=== PATIENT | female | born 1990 | race Caucasian/White ===

== ENCOUNTER 2018-05-20 09:14 | Inpatient (IN) | payer BC ==
[2018-05-20] MEDS ORDERED: LIDOCAINE 1% (MPF) 30 ML INJ INJ (10:30)
[2018-05-20] MEDS ORDERED: CARBOPROST 250 MCG INJ IM (10:30)
[2018-05-20] MEDS ORDERED: OXYTOCIN 30 UNITS/LR 500 ML IV ×4 (10:30→11:30)
[2018-05-20] MEDS ORDERED: MISOPROSTOL 200 MCG TAB PR (10:30)
[2018-05-20] MEDS ORDERED: METHYLERGONOVINE 0.2 MG INJ IM (10:30)
[2018-05-20] MEDS: LACTATED RINGER'S 1,000 ML IV ×3 (11:07→20:52)
[2018-05-20 11:23] LABS: ADD MAN DIFF? NO
[2018-05-20 11:30] LABS: BASOPHILS % 0.3 % (0.0-2.0); EOSINOPHILS # 0.1 10^3/ul (0.0-0.5); EOSINOPHILS % 0.5 % (0.0-7.0); HEMOGLOBIN 11.9 g/dl (12.0-16.0); LYMPHOCYTES # 1.9 10^3/ul (0.8-2.9); LYMPHOCYTES % 18.4 % (15.0-51.0); MEAN CORPUSCULAR HEMOGLOBIN 28.9 pg (29.0-33.0); MEAN CORPUSCULAR HGB CONC 33.1 g/dl (32.0-37.0); MEAN CORPUSCULAR VOLUME 87.4 fl (82.0-101.0); MEAN PLATELET VOLUME 11.9 fl (7.4-10.4); MONOCYTE # 0.8 10^3/ul (0.3-0.9); MONOCYTES % 8.1 % (0.0-11.0); NEUTROPHIL # 7.4 10^3/ul (1.6-7.5); NEUTROPHILS % 71.5 % (39.0-77.0); PLATELET COUNT 149 10^3/UL (140-415); RED BLOOD COUNT 4.12 10^6/ul (4.20-5.40); RED CELL DISTRIBUTION WIDTH 14.4 % (11.5-14.5)
[2018-05-20 11:30] LABS: WHITE BLOOD COUNT 10.4 10^3/ul (4.8-10.8)
[2018-05-20] MEDS ORDERED: MISOPROSTOL 50 MCG CAPSULE VAG (11:30)
[2018-05-20 11:50] LABS: INR 0.86; PARTIAL THROMBOPLASTIN TIME 25.1 Sec (23.0-35.0); PROTIME 11.8 Sec (11.9-14.9); PT RATIO 0.9
[2018-05-20 13:01] LABS: HEPATITIS B SURFACE ANTIGEN NEGATIVE (NEGATIVE)
[2018-05-20] MEDS: MISOPROSTOL 50 MCG CAPSULE VAG ×2 (13:30→19:44)
[2018-05-20 15:14] LABS: RAPID PLASMA REAGIN NONREACTIVE (NR)
[2018-05-20] MEDS ORDERED: BUTORPHANOL 2 MG INJ (23:13)
[2018-05-20] MEDS: BUTORPHANOL 2 MG INJ IV (23:24)
[2018-05-21] MEDS: LACTATED RINGER'S 1,000 ML IV ×3 (02:21→10:54)
[2018-05-21] MEDS: OXYTOCIN 30 UNITS/LR 500 ML IV ×3 (05:47→17:56)
[2018-05-21] MEDS: MISOPROSTOL 50 MCG CAPSULE VAG ×2 (06:00)
[2018-05-21] MEDS ORDERED: NALOXONE (0.4 MG/ML) INJ IV (07:30)
[2018-05-21] MEDS ORDERED: ONDANSETRON 4 MG INJ IV (07:30)
[2018-05-21] MEDS: FENTAnyl 2MCG/ML-ROPIV 0.2% 100 ML BAG EPI (10:56)
[2018-05-21] MEDS ORDERED: MINERAL OIL LIGHT 10 ML VIAL (12:39)
[2018-05-21] MEDS ORDERED: MISOPROSTOL 200 MCG TAB PR (13:30)
[2018-05-21] MEDS ORDERED: HYDROCODONE/APAP (5/325) TAB PO ×2 (13:30)
[2018-05-21] MEDS ORDERED: OXYTOCIN 30 UNITS/LR 500 ML IV (13:30)
[2018-05-21] MEDS ORDERED: NACL 0.9% 3 ML SYG IV (13:30)
[2018-05-21] MEDS ORDERED: CARBOPROST 250 MCG INJ IM (13:30)
[2018-05-21] MEDS ORDERED: METHYLERGONOVINE 0.2 MG INJ IM (13:30)
[2018-05-21] MEDS: WITCH HAZEL/GLYCERIN PAD PR (17:39)
[2018-05-21] MEDS: IBUPROFEN 600 MG TAB PO (17:40)
[2018-05-21] MEDS: SENNA/DOCUSATE NA (8.6MG/50MG) TAB PO (21:09)
[2018-05-22] MEDS: IBUPROFEN 600 MG TAB PO ×5 (00:18→23:43)
[2018-05-22 07:44] LABS: ADD MAN DIFF? NO
[2018-05-22 07:57] LABS: BASOPHIL # 0.1 10^3/ul (0.0-0.1); BASOPHILS % 0.4 % (0.0-2.0); EOSINOPHILS % 0.3 % (0.0-7.0); HEMATOCRIT 33.4 % (37.0-47.0); HEMOGLOBIN 11.1 g/dl (12.0-16.0); LYMPHOCYTES # 2.1 10^3/ul (0.8-2.9); LYMPHOCYTES % 14.9 % (15.0-51.0); MEAN CORPUSCULAR HEMOGLOBIN 29.4 pg (29.0-33.0); MEAN CORPUSCULAR HGB CONC 33.2 g/dl (32.0-37.0); MEAN CORPUSCULAR VOLUME 88.4 fl (82.0-101.0); MEAN PLATELET VOLUME 11.8 fl (7.4-10.4); MONOCYTES % 7.3 % (0.0-11.0); NEUTROPHIL # 10.5 10^3/ul (1.6-7.5); NEUTROPHILS % 76.2 % (39.0-77.0); PLATELET COUNT 133 10^3/UL (140-415); RED BLOOD COUNT 3.78 10^6/ul (4.20-5.40); RED CELL DISTRIBUTION WIDTH 14.4 % (11.5-14.5)
[2018-05-22 07:57] LABS: WHITE BLOOD COUNT 13.8 10^3/ul (4.8-10.8)
[2018-05-22] MEDS: SENNA/DOCUSATE NA (8.6MG/50MG) TAB PO ×2 (09:15→21:25)
[2018-05-22] MEDS: LACTATED RINGER'S 1,000 ML IV ×2 (10:29→18:29)
[2018-05-23] MEDS: LACTATED RINGER'S 1,000 ML IV (02:29)
[2018-05-23] MEDS: IBUPROFEN 600 MG TAB PO ×2 (05:26→11:31)
[2018-05-23] MEDS: SENNA/DOCUSATE NA (8.6MG/50MG) TAB PO (08:47)
== END 2018-05-23 18:28 | disposition home or self-care (01) | DRG 807 ==
LOC: PP1 05-21 16:00 → L-D 09:14
PROVIDERS: Obstetrics & Gynecology
PROC: 10E0XZZ Delivery of Products of Conception, External Approach (ICD-10-PCS; principal; 2018-05-20 07:30)
PROC: 0KQM0ZZ Repair Perineum Muscle, Open Approach (ICD-10-PCS; 2018-05-20 07:30)
DX: O48.0 Post-term pregnancy (principal); O70.1 Second degree perineal laceration during delivery; Z37.0 Single live birth; Z3A.40 40 weeks gestation of pregnancy
CPT/HCPCS: 62319; 76816; 76818; 85025; 85610; 85730; 86592; 86850; 86900; 86901; 87340